=== PATIENT | female | born 1980 | race Caucasian/White ===

== ENCOUNTER 2022-01-17 13:26 | Emergency (ER) | payer OTHER ==
[2022-01-17 14:55] LABS: HEMOGLOBIN 13.6 gm/dl (12.3-15.3); RED BLOOD COUNT 4.76 M/UL (4.00-5.10)
[2022-01-17 15:21] LABS: BUN/CREATININE RATIO 23 (0-10)
[2022-01-17] MEDS ORDERED: OMNICEF 300 MG300 MG PO (17:23)
== END 2022-01-17 17:40 | disposition home or self-care (01) ==
LOC: ER1 13:26
PROVIDERS: Emergency Medicine
DX: R10.9 Unspecified abdominal pain (principal); F17.200 Nicotine dependence, unspecified, uncomplicated
CPT/HCPCS: 80053; 81001; 83690; 84703; 85025; 87086; 96374; 96375; 99284; J0696; J2270; J2405; Q9967

== ENCOUNTER 2022-01-26 13:48 | Emergency (ER) | payer OTHER ==
[~2022-01-26 13:48] MED LIST: OMNICEF 300 MG300 MG PO
== END 2022-01-26 17:00 | disposition home or self-care (01) ==
LOC: ER1 13:48
DX: M79.661 Pain in right lower leg (principal); Z88.8 Allergy status to other drugs, medicaments and biological substances; F17.200 Nicotine dependence, unspecified, uncomplicated
CPT/HCPCS: 93971; 99283